=== PATIENT | male | born 1950 | race Caucasian/White ===

== ENCOUNTER 2020-02-14 13:28 | Emergency (ER) | payer MEDICARE, BC ==
[2020-02-14] MEDS ORDERED: Sodium Chloride 0.9% 10 ML Syringe FLUSH PRN (13:39)
[2020-02-14] MEDS ORDERED: Diltiazem 25 MG/5 ML SDV IVPUSH ONE (13:41)
[2020-02-14] MEDS ORDERED: Metoprolol Tartrate 5 MG/5 ML SDV IVPUSH STA ×2 (14:19→14:20)
[2020-02-14] MEDS ORDERED: Metoprolol Tartrate 5 MG/5 ML SDV IVPUSH ONE (14:21)
[2020-02-14] MEDS ORDERED: Metoprolol Succinate 50 MG Tab.ER PO ONE (15:06)
--- NOTE | 2020-02-14 15:14 | EDM.PDOC ---
ED HPI GENERAL MEDICAL PROBLEM - General Chief Complaint: Cardiovascular Problem Stated Complaint: IRREGULAR HEART BEAT Time Seen by Provider: 02/14/20 14:20 Source of Information: Reports: Patient, Family History Limitations: Reports: No Limitations - History of Present Illness INITIAL COMMENTS - FREE TEXT/NARRATIVE: Patient presented to the ED because rapid HR. He was in the [facility] for an echo but was found to be tachycardic with a HR of 200's. He was diagnosed with AFIB 2 weeks ago and was started on oral Cardizem 180 mg. denies any chest pain, dyspnea,nausea,vomiting or headache. - Related Data Allergies Allergy/AdvReac Type Severity Reaction Status Date / Time No Known Allergies Allergy Verified 02/07/14 04:45 Home Meds: Home Meds [place]-3/DHA/Epa/Fish Oil [[place]-3 Fish Oil 1,200 MG Sfgl] 3 ampule PO BEDTIME 02/07/14 [History] allopurinoL [Allopurinol] 300 mg BEDTIME 02/07/14 [History] lisinopriL [Prinivil] 20 mg DAILY 02/07/14 [History] Aspirin 81 mg PO DAILY 02/14/20 [History] Metoprolol Succinate 50 mg PO DAILY #30 tab.er.24h 02/14/20 [Rx] Pravastatin [Pravachol] 20 mg PO BEDTIME 02/14/20 [History] Social & Family History - Tobacco Use Tobacco Use Status *Q: Former Tobacco User Years of Tobacco use: 50 Used Tobacco, but Quit: Yes Month/Year Tobacco Last Used: 2019 - Caffeine Use Caffeine Use: Reports: None - Recreational Drug Use Recreational Drug Use: No ED ROS GENERAL - Review of Systems Review Of Systems: See Below Constitutional: Reports: No Symptoms HEENT: Reports: No Symptoms Respiratory: Reports: No Symptoms Cardiovascular: Reports: Palpitations Endocrine: Reports: No Symptoms GI/Abdominal: Reports: No Symptoms : Reports: No Symptoms Musculoskeletal: Reports: No Symptoms Skin: Reports: No Symptoms Neurological: Reports: No Symptoms Psychiatric: Reports: No Symptoms ED EXAM, GENERAL - Physical Exam Exam: See Below Exam Limited By: No Limitations General Appearance: Alert, No Apparent Distress Nose: Normal Inspection, Normal Mucosa Throat/Mouth: Normal Inspection, Normal Lips, Normal Teeth Head: Atraumatic, Normocephalic Neck: Normal Inspection, Supple, Non-Tender, Full Range of Motion Respiratory/Chest: No Respiratory Distress, Lungs Clear, Normal Breath Sounds, No Accessory Muscle Use, Chest Non-Tender Cardiovascular: Normal Peripheral Pulses, No JVD, No Murmur, Tachycardia GI/Abdominal: Normal Bowel Sounds, Soft, Non-Tender Back Exam: Normal Inspection, Full Range of Motion Extremities: Normal Inspection, Normal Range of Motion, Non-Tender Neurological: Alert, Oriented, CN II-XII Intact, Normal Cognition Course - Vital Signs Text/Narrative:: Labs/EKG was discussed with patient Cardizem 25 mg IV x1 Metoprolol 5 mg IV x3 doses Metoprolol Succinate 50 mg PO x1 His HR did improved with metoprolol and upon discharge his HR is in the 70's and vitally stable. Last Recorded V/S: Last Vital Signs Temp 36.7 C 02/14/20 14:20 Pulse 84 02/14/20 15:13 Resp 18 02/14/20 14:20 BP 135/79 02/14/20 15:13 Pulse Ox 95 02/14/20 14:20 - Orders/Labs/Meds Labs: Laboratory Tests 02/14/20 02/14/20 02/14/20 Range/Units 13:35 13:35 13:35 WBC 6.3 (4.5-12.0) X10-3/uL RBC 4.47 (4.30-5.75) x10(6)uL Hgb 14.5 (13.5-17.8) g/dL Hct 41.2 (30.0-51.3) % MCV 92.0 (80-96) fL MCH 32.5 (27.7-33.6) pg MCHC 35.3 (32.2-35.4) g/dL RDW 12.3 (11.5-15.5) % Plt Count 494 H (125-369) X10(3)uL MPV 6.5 L (7.4-10.4) fL Neut % (Auto) 55.1 (46-82) % Lymph % (Auto) 30.0 (13-37) % [place] % (Auto) 13.2 H (4-12) % Eos % (Auto) 1 (1.0-5.0) % Baso % (Auto) 0 (0-2) % Neut # (Auto) 3.5 (1.6-8.3) # Lymph # (Auto) 1.9 (0.6-5.0) # [place] # (Auto) 0.8 (0.0-1.3) # Eos # (Auto) 0.1 (0.0-0.8) # Baso # (Auto) 0.0 (0.0-0.2) # PT (9.0-11.1) sec INR (1.00-1.24) APTT (24.4-33.2) SECONDS Sodium 144 (135-145) mmol/L Potassium 3.9 (3.5-5.3) mmol/L Chloride 105 (100-110) mmol/L Carbon Dioxide 32 (21-32) mmol/L BUN 11 (7-18) mg/dL Creatinine 1.0 (0.70-1.30) mg/dL Est Cr Clr Drug Dosing TNP Estimated GFR (MDRD) > 60 (>60) BUN/Creatinine Ratio 11.0 (9-20) Glucose 109 (80-116) mg/dL Calcium 9.2 (8.6-10.2) mg/dL Total Bilirubin 0.6 (0.1-1.3) mg/dL AST 49 H (5-25) IU/L ALT 73 H (12-36) U/L Alkaline Phosphatase 63 (56-112) IU/L Troponin I 8.2 (4.0-60.3) pg/mL Total Protein 7.3 (6.0-8.0) g/dL Albumin 3.6 (3.2-4.6) g/dL Globulin 3.7 g/dL Albumin/Globulin Ratio 1.0 10/16/20 Range/Units 13:35 WBC (4.5-12.0) X10-3/uL RBC (4.30-5.75) x10(6)uL Hgb (13.5-17.8) g/dL Hct (30.0-51.3) % MCV (80-96) fL MCH (27.7-33.6) pg MCHC (32.2-35.4) g/dL RDW (11.5-15.5) % Plt Count (125-369) X10(3)uL MPV (7.4-10.4) fL Neut % (Auto) (46-82) % Lymph % (Auto) (13-37) % [place] % (Auto) (4-12) % Eos % (Auto) (1.0-5.0) % Baso % (Auto) (0-2) % Neut # (Auto) (1.6-8.3) # Lymph # (Auto) (0.6-5.0) # [place] # (Auto) (0.0-1.3) # Eos # (Auto) (0.0-0.8) # Baso # (Auto) (0.0-0.2) # PT 10.2 (9.0-11.1) sec INR 0.94 L (1.00-1.24) APTT 26.0 (24.4-33.2) SECONDS Sodium (135-145) mmol/L Potassium (3.5-5.3) mmol/L Chloride (100-110) mmol/L Carbon Dioxide (21-32) mmol/L BUN (7-18) mg/dL Creatinine (0.70-1.30) mg/dL Est Cr Clr Drug Dosing Estimated GFR (MDRD) (>60) BUN/Creatinine Ratio (9-20) Glucose (80-116) mg/dL Calcium (8.6-10.2) mg/dL Total Bilirubin (0.1-1.3) mg/dL AST (5-25) IU/L ALT (12-36) U/L Alkaline Phosphatase (56-112) IU/L Troponin I (4.0-60.3) pg/mL Total Protein (6.0-8.0) g/dL Albumin (3.2-4.6) g/dL Globulin g/dL Albumin/Globulin Ratio Meds: Medications Discontinued Medications Generic Name Dose Route Start Last Admin Trade Name Freq PRN Reason Stop Dose Admin Diltiazem HCl 15 mg 02/14/20 13:41 02/14/20 13:55 Diltiazem IVPUSH 02/14/20 13:42 15 mg ONETIME ONE Administration Metoprolol Succinate 50 mg 02/14/20 15:06 02/14/20 15:13 Toprol Xl PO 02/14/20 15:07 50 mg ONETIME ONE Administration Metoprolol Tartrate 5 mg 02/14/20 14:19 02/14/20 14:33 Lopressor IVPUSH 02/14/20 14:20 5 mg NOW STA Administration Metoprolol Tartrate 5 mg 02/14/20 14:20 02/14/20 14:40 Lopressor IVPUSH 02/14/20 14:21 5 mg NOW STA Administration Metoprolol Tartrate 5 mg 02/14/20 14:21 02/14/20 17:34 Lopressor IVPUSH 02/14/20 14:22 Not Given ONETIME ONE Sodium Chloride 10 ml 02/14/20 13:39 02/14/20 13:57 Saline Flush FLUSH 10 ml ASDIRECTED PRN Administration Keep Vein Open Departure - Departure Time of Disposition: 16:15 Disposition: Home, Self-Care 01 Condition: Good Clinical Impression: Afib, Atrial flutter, Sinus tachycardia Prescriptions: Metoprolol Succinate 50 mg PO DAILY #30 tab.er.24h Instructions: Atrial Flutter, Sinus Tachycardia, Atrial Fibrillation, [id number] Referrals: Александр Del Rosario MD [Primary Care Provider] - Forms: ED Department Discharge Additional Instructions: Please read discharge instructions on AFIB, A Flutter, Sinus Tach Quit taking your cardizem or diltiazem Take metoprolol succinate 50 mg once daily starting tomorrow Follow up in the clinic next week to see if the metoprolol is working or not Sepsis Event Note (ED) - Evaluation Sepsis Screening Result: No Definite Risk
== END 2020-02-14 16:20 | disposition home or self-care (01) ==
LOC: FB.ED 13:28
DX: I48.92 Unspecified atrial flutter (principal); R00.0 Tachycardia, unspecified; Z79.82 Long term (current) use of aspirin; Z79.899 Other long term (current) drug therapy; Z87.891 Personal history of nicotine dependence
CPT/HCPCS: 36415; 80053; 84484; 85025; 85610; 85730; 93005; 96374; 96375; 99284; 99285; A9270; J3490

== ENCOUNTER 2020-02-24 10:46 | Inpatient (IN) | payer MEDICARE, BC ==
[2020-02-24] MEDS ORDERED: Sodium Chloride 0.9% 10 ML Syringe FLUSH PRN (11:24)
[2020-02-24] MEDS ORDERED: Diltiazem 25 MG/5 ML SDV IVPUSH ONE (11:24)
[2020-02-24] MEDS: Diltiazem IR 60 MG Tab PO SCH ×2 (13:27→17:46)
--- NOTE | 2020-02-24 15:10 | HP ---
ADMISSION DATE: 02/24/2020 CHIEF COMPLAINT: Rapid atrial fibrillation. HISTORY OF PRESENT ILLNESS: Mr. Maravilla is a 70-year-old man from [place] with a history of palpitations dating back the last couple of months. He also has type 2 diabetes, hypertension, hyperlipidemia, and a history of gout. According to the patient, he states that this summer, he had 2 episodes where he felt quite weak with palpitations. He had dizziness, and on one episode, he did not feel he could walk 50 feet from his apple tree to his house. He was seen in the office and started on diltiazem. In followup, he continued to have a rapid ventricular response, so went to the emergency room, and his diltiazem was stopped, and he was placed on metoprolol instead. He has not been having any chest pain. He feels minimally short of breath, but his rate has remained elevated in the 130 to 150 range. For this reason, he is admitted to the ICU for intravenous diltiazem. The patient denies any symptoms of exertional angina. He has otherwise been quite healthy. He is not drinking any caffeine. He has 2 drinks of alcohol per day. No decongestants or other stimulants. He is a nonsmoker, and there is no family history of heart disease. PAST MEDICAL HISTORY: Hypertension for several years. He has type 2 diabetes, hyperlipidemia, and a history of gout. He has had a tonsillectomy in childhood and repair of a forehead laceration from a fall. Otherwise, no medical problems. MEDICATIONS: 1. Metformin 500 mg b.i.d. 2. Lisinopril 20 mg daily. 3. Allopurinol 300 mg daily. 4. Xarelto 20 mg daily. 5. Pravachol 20 mg daily. 6. Metoprolol 100 mg b.i.d. 7. Aspirin 81 mg daily. ALLERGIES: None known. HABITS: Nonsmoker. Two drinks of alcohol per day. FAMILY HISTORY: The patient's parents both at age 95 of old age. One brother had diabetes. SOCIAL HISTORY: The patient was for 52 years. He lost his 2 years ago. He has children and grandchildren in town. He is retired as a pharmacist and business general dentist/owner. REVIEW OF SYSTEMS: GENERAL: No seizure, syncope, or recent significant weight change. SKIN: Negative for rash. HEENT: No recent changes in hearing or vision. No headaches. No sore throat or URI. No cough or purulent sputum. CHEST: No chest pain or current dyspnea. ABDOMEN: No abdominal pain, nausea, diarrhea, constipation, hematochezia, or melena. GENITOURINARY: No hematuria or UTI symptoms. MUSCULOSKELETAL: No joint inflammation, swelling, or skin rash. PHYSICAL EXAMINATION: GENERAL: He is alert, comfortable, and healthy in appearance. VITAL SIGNS: Blood pressure 132/90, pulse 140, respirations normal, weight 207, temperature 97.2, BMI 32. SKIN: Anicteric, warm, and dry without rash. HEENT: Clear TMs. Throat is clear. LUNGS: Clear to the bases. HEART: Irregular now after the intravenous diltiazem at approximately 90 beats per minute. ABDOMEN: Normal bowel sounds. Soft and nontender. No masses or organomegaly. EXTREMITIES: Good pulses. No edema. NEUROLOGIC: Normal. LABORATORY DATA: Laboratory done earlier this month showed a glucose of 158 and creatinine of 1.19. BNP 22. Hemoglobin 14.7, today's hemoglobin 13.8. Electrolytes normal. Creatinine normal. Troponin 8.1, normal. ASSESSMENT: 1. Atrial fibrillation with rapid ventricular response. 2. Hypertension. 3. Type 2 diabetes. 4. History of hyperlipidemia. 5. History of gout. PLAN: He has been given 1 dose of IV diltiazem. We will start him on oral short-acting diltiazem at 60 mg every 6 hours. I have discussed both the options of rate control and conversion. I have advised he should stay on the Xarelto. He does have an electrophysiology appointment coming up in March, but we will likely be able to discharge him to home within 24 hours. /[id number] LEANDER/LUCÍA
[2020-02-24] MEDS: metFORMIN 500 MG Tab PO SCH (17:45)
[2020-02-24] MEDS ORDERED: Allopurinol 300 MG Tab PO SCH (18:00)
[2020-02-24] MEDS ORDERED: Pravastatin 20 MG Tab PO SCH (18:00)
[2020-02-24] MEDS ORDERED: Lisinopril 20 MG Tab PO SCH (18:00)
[2020-02-24] MEDS ORDERED: Aspirin 81 MG Tab.EC PO SCH (18:00)
[2020-02-24] MEDS ORDERED: Non-Formulary Medication 1 Each (Omega-3/Dha/Epa/Fish Oil [Omega-3 Fish Oil 1,200 Mg Sfgl] PO SCH (21:00)
[2020-02-25] MEDS: Diltiazem IR 60 MG Tab PO SCH ×2 (00:15→06:08)
[2020-02-25] MEDS: metFORMIN 500 MG Tab PO SCH (08:04)
[2020-02-25] MEDS ORDERED: Diltiazem 240 MG Cap.ER PO SCH (09:00)
--- NOTE | 2020-02-25 10:56 | DISCH ---
DISCHARGE DATE: 02/25/2020 PRIMARY FINAL DIAGNOSIS: Persistent atrial fibrillation with tachycardia. SUMMARY: Mr. Maravilla is a 70-year-old man who was found to be in atrial fibrillation as an outpatient. He was treated with diltiazem without significant success and rate control. He then went to the emergency room and was changed to a beta brando. In spite of this, he has had persistent symptomatic tachycardia with rates in the 130 to 150 range. He was seen in the clinic in followup and sent over to [facility] for admission and inpatient therapy. The patient was given IV diltiazem 25 mg on admission. He was started on oral diltiazem 60 mg p.o. every 6 hours. His rate fluctuated and he switched from atrial fibrillation to atrial flutter. Cardiology intervention is planned and set up because of his persistent cardiac arrhythmia. He is discharged to home to continue Xarelto 20 mg daily, Pravachol 20 mg daily, metformin 500 mg b.i.d., lisinopril 20 mg daily, diltiazem XR 240 one daily, aspirin 81 mg daily, and allopurinol 300 mg daily. He is deemed at this time stable enough for return to home in spite of his persistent arrhythmia and is an acceptable candidate to have Cardiology followup as an outpatient. It is of note that he never did demonstrate normal sinus rhythm while in the ER or in the hospital. /[id number] LEANDER/LUCÍA
--- NOTE | 2020-02-25 11:02 | DISCH ---
DISCHARGE DATE: 02/25/2020 PRIMARY FINAL DIAGNOSIS: Atrial fibrillation converted to flutter. OTHER DIAGNOSES: Chronic essential hypertension, type 2 diabetes, hyperlipidemia, history of gout. OPERATIONS: None. COMPLICATIONS: None. SUMMARY: Attila is a 70-year-old man with the above medical problems, who came in rapid atrial fibrillation. He had been initially started on diltiazem as an outpatient. At a subsequent ER visit, he was changed to metoprolol. On admission, he was in atrial fibrillation with a ventricular rate in the 130 to 150 range. He was hemodynamically stable. Laboratory studies include normal CBC, normal chemistry panel, and negative troponin. He was given a dose of diltiazem 25 mg IV and subsequently started on diltiazem 60 mg p.o. every 6 hours. He converted from atrial fibrillation into atrial flutter with rate controlled in the 60s. By 02/25/2020, he was ready for discharge. He was feeling well without symptoms. He remains in atrial flutter with a ventricular rate at 66 and blood pressure is excellent, blood pressure is 130/80. DISCHARGE MEDICATIONS: He is discharged on medications as follows: 1. Xarelto 20 mg daily. 2. Metformin 500 mg b.i.d. 3. Diltiazem XR 240 one every morning. 4. Pravastatin 40 mg daily. 5. Lisinopril 20 mg daily. 6. Aspirin 81 mg daily. 7. Allopurinol 300 mg daily. He is asked to see Dr. Del Rosario and follow up in clinic in 1 week. He is scheduled for an appointment with electrophysiology in [place] in approximately 6 weeks. /[id number] LEANDER/LUCÍA
== END 2020-02-25 09:00 | disposition home or self-care (01) | DRG 310 ==
LOC: FB.MS 10:46
PROVIDERS: ADMIT Family Medicine; ATTEND Family Medicine
DX: I48.19 Other persistent atrial fibrillation (principal); I48.92 Unspecified atrial flutter; E78.5 Hyperlipidemia, unspecified; I10 Essential (primary) hypertension; E11.9 Type 2 diabetes mellitus without complications; Z79.82 Long term (current) use of aspirin; Z79.84 Long term (current) use of oral hypoglycemic drugs; Z79.899 Other long term (current) drug therapy; M10.9 Gout, unspecified
CPT/HCPCS: 36415; 80048; 84484; 85025; 93005; A9270-GY; J3490

== ENCOUNTER 2022-06-14 07:51 | Day surgery (SDC) | payer MEDICARE, BC ==
[2022-06-14] MEDS ORDERED: fentaNYL 100 MCG/2 ML SDV IV ONE (07:52)
[2022-06-14] MEDS ORDERED: Midazolam 1 MG/ML 2 ML SDV IV ONE (07:52)
[2022-06-14] MEDS ORDERED: Lactated Ringers 1,000 ML IV PRN (08:00)
[2022-06-14] MEDS ORDERED: Sodium Chloride 0.9% 10 ML Syringe FLUSH PRN (08:00)
[2022-06-14] MEDS ORDERED: acetaZOLAMIDE 500 MG Cap.ER PO ONE (10:00)
== END 2022-06-14 10:30 | disposition home or self-care (01) ==
LOC: FB.SDS 07:51
PROVIDERS: ATTEND Ophthalmology
DX: H26.9 Unspecified cataract (principal); I10 Essential (primary) hypertension; E78.00 Pure hypercholesterolemia, unspecified; M10.9 Gout, unspecified; I48.3 Typical atrial flutter; Z79.899 Other long term (current) drug therapy; Z79.84 Long term (current) use of oral hypoglycemic drugs; Z79.82 Long term (current) use of aspirin; Z87.891 Personal history of nicotine dependence
CPT/HCPCS: 00142; 82947; A9270-GY; J2250; J3010; J3490

== ENCOUNTER 2022-06-28 07:06 | Day surgery (SDC) | payer MEDICARE, BC ==
[2022-06-28] MEDS ORDERED: fentaNYL 100 MCG/2 ML SDV IV ONE (07:07)
[2022-06-28] MEDS ORDERED: Midazolam 1 MG/ML 2 ML SDV IV ONE (07:07)
[2022-06-28] MEDS ORDERED: Lactated Ringers 1,000 ML IV PRN (07:30)
[2022-06-28] MEDS: Sodium Chloride 0.9% 10 ML Syringe FLUSH PRN (08:00)
[2022-06-28] MEDS: acetaZOLAMIDE 500 MG Cap.ER PO ONE (09:36)
== END 2022-06-28 09:47 | disposition home or self-care (01) ==
LOC: FB.SDS 07:06
PROVIDERS: ATTEND Ophthalmology
DX: H26.9 Unspecified cataract (principal); R73.9 Hyperglycemia, unspecified
CPT/HCPCS: 00142; 66984; 82947; A9270; J2250; J3010; J3490